=== PATIENT | male | born 1980 | race Caucasian/White ===

== ENCOUNTER 2019-10-29 10:29 | Day surgery (SDC) | payer OTHER, SELFPAY ==
--- NOTE | 2019-10-29 | PATH_ITS ---
[facility] Accession Number: [id number] . 01 Material submitted: . PART A: colon - TRANSVERSE COLON POLYP PART B: colon - RECTO-SIGMOID COLON BIOPSY PART C: rectum - PROCTITIS, BIOPSY . 02 Diagnosis: A. Transverse Colon, Polyp, Biopsy: Tubular adenoma. . B. Rectosigmoid Colon, Biopsy: Tubular adenoma. . C. Designated proctitis, Biopsy: Moderately active colitis. Please see comment. Negative for granulomas, dysplasia, and malignancy. [facility] 10/30/2019 1218 Local . 02 Comment: C. The colon biopsies in part C show moderate neutrophilic activity including cryptitis and patchy crypt abscesses. There are mildly increased lymphocytes and plasma cells in the lamina propria, but the crypts show no branching or other distortion. No obvious viral cytopathic effects or parasitic organisms are identified. There is no evidence of acute ischemia. The differential diagnosis includes infection, medication related mucosal injury, trauma/prolapse, diverticular disease-associated colitis, and idiopathic inflammatory bowel disease. . 02 Electronically signed: . Ximena Bergman MD, Pathologist NPI- [id number] . 01 Gross description: . Part A: TRANSVERSE COLON POLYP: Received in formalin is 1 fragment(s) of liu, soft tissue measuring 0.3 x 0.2 x 0.2 cm submitted entirely in 1 cassette(s) Part B: RECTO-SIGMOID COLON BIOPSY: Received in formalin is 1 fragment(s) of liu, soft tissue measuring 0.3 x 0.2 x 0.2 cm submitted entirely in 1 cassette(s) Part C: PROCTITIS, BIOPSY: Received in formalin are 3 fragment(s) of liu, soft tissue measuring 0.2 x 0.2 x 0.2 cm to 0.3 x 0.3 x 0.2 cm submitted entirely in 1 cassette(s) /[facility] 10/29/2019 2129 Local . 02 Pathologist provided ICD-10: D12.3, D12.7 . 02 CPT . 931903, [id number], [id number] Performed at: 01 [facility] [address] [id number] MD Del Degroot MD Phone: [phone] Performed at: [facility] [id number] [place] [id number] MD Ximena Bergman MD Phone: [phone]
--- NOTE | 2019-10-29 08:18 | PM.HP.1 ---
History of Present Illness History of Present Illness Date Patient Seen: 10/29/19 Chief complaint: [id number] COLONOSCOPY Narrative: Patient is a 38 year old male who presented for colonoscopy. Patient last seen in the office 10/14/19 for rectal bleeding. No prior colonoscopy Review of Systems Review of Systems ROS: Yes All systems reviewed with the patient and are negative except as otherwise documented Exam Const General: cooperative, healthy appearing, comfortable, well developed and well groomed Nutritional Appearance: well nourished Orientation: alert, awake and oriented x3 HENMT Head: normocephalic and atraumatic Nose: external nose normal Resp Effort & Inspection: normal respiratory effort and able to speak in complete sentences Auscultation: clear to auscultation bilaterally Cardio Rate: regular rate Rhythm: regular rhythm Heart Sounds: S1 normal and S2 normal GI Palpation: soft, No guarding and No rigid Auscultation: normal bowel sounds Extrem Right lower extremity: no edema Left lower extremity: no edema Assessment & Plan Assessment & Plan narrative: 1. Rectal Bleeding - Colonoscopy today, further recommendations to follow
[2019-10-29 10:42] VITALS: BP 153/101; PULSE 86; RESP 16; TEMP 36.8; O2SAT 96; BMI 24.1
[2019-10-29] MEDS: SODIUM CHLORIDE 0.9% 1,000 ML 70 ML IV (11:02)
[2019-10-29] MEDS: fentaNYL 250 MCG/5 ML INJ IV (11:08)
[2019-10-29] MEDS: MIDAZOLAM 5 MG/5 ML VIAL IV (11:09)
[2019-10-29 11:28] VITALS: BP 143/96; PULSE 96; RESP 12; TEMP 36.9; O2SAT 95
--- NOTE | 2019-10-29 11:31 | PM.OP.ENDO ---
Operative Date/Time/Diagnoses Date of procedure: 10/29/19 Time of procedure: 11:06 Procedure Notes Procedure in detail: Surgeon: Melly Myles DO Procedure: Colonoscopy with polypectomy and biopsies Preoperative diagnosis: 1. Rectal bleeding Postoperative diagnosis: 1. Ulcerative proctitis, suspicious for IBD 2. Rectosigmoid colon polyps 3 mm removed with cold forceps 3. Transverse colon polyp 5 mm removed with cold snare Medications: Conscious sedation using 4 mg IV of Midazolam and 100 mcg IV of Fentanyl Preanesthesia Assessment An H and P was performed/updated and the Px?s ASA class is 1. The procedure was discussed in detail with the patient. The potential risks and complications including infection, bleeding, missed lesions, perforation, need for surgery in case of perforation, prolonged hospital stay, and were explained. A brief question and answer period was allotted and once all questions were answered, informed consent was obtained. The patient was brought back to the procedure room and placed on standard monitoring. The patient?s vital signs were monitored continuously throughout the entire procedure. Prior to starting, a timeout was performed to confirm the patient?s identity, allergies, medications, and procedure. Procedure in detail The patient was placed in left lateral decubitus position and once adequate sedation was obtained a EZRA was performed. The digital rectal examination did not reveal any palpable lesions. The tip of the colonoscope was placed in the anal canal and advanced without difficulty all the way to the cecum which was identified by the appendiceal orifice and the ileocecal valve. Terminal ileum was intubated and appeared normal. Careful examination of all esteves of the colon was performed with irrigation of any residual stool. 5 mm polyp removed with cold snare in the transverse colon. 3 mm polyp removed with Jumbo forceps the rectosigmoid junction. Ulcerative proctitis biopsied -Hill score 2. The patient tolerated the procedure well and will be brought back to the recovery area to be discharged once criteria are met. The prep was judged to be good/excellent and adequate to identify polyps less than 5 mm. The withdrawal time was 11min. The total physician intraservice time was 17min. Complications There were no complications and estimated blood loss was minimal.. Recommendations: Resume previous diet Continue outPx medications Follow up pathology results Repeat colonoscopy based on pathology results Office follow up to be scheduled to discuss treatment options An emergency contact number was given to the patient for any complications related to the procedure Scope withdrawal time: 11min Sedation minutes: 17
[2019-10-29 11:33] VITALS: BP 133/96; PULSE 90; RESP 18; O2SAT 96
[2019-10-29 11:38] VITALS: BP 140/96; PULSE 91; RESP 20; O2SAT 95
[2019-10-29 11:41] VITALS: BP 140/99; PULSE 87; RESP 16; TEMP 36.4; O2SAT 95
== END 2019-10-29 12:30 | disposition home or self-care (01) ==
PROVIDERS: PCP General Practice; Referring Provider General Practice; Visit Provider Student in an Organized Health Care Education/Training Program
PROC: 0DJD8ZZ Inspection of Lower Intestinal Tract, Via Natural or Artificial Opening Endoscopic (ICD-10-PCS; CPT 45378; principal; 2019-10-29 11:30)
DX: K62.5 Hemorrhage of anus and rectum (principal); K62.89 Other specified diseases of anus and rectum; D12.3 Benign neoplasm of transverse colon; D12.7 Benign neoplasm of rectosigmoid junction
CPT/HCPCS: 45385; 45380; J2250; J3010